=== PATIENT | female | born 1995 | race Caucasian/White ===

== ENCOUNTER 2018-03-26 19:06 | Emergency (ER) | payer MEDICAID, OTHER ==
[2018-03-26 19:12] VITALS: BP 140/67; PULSE 110; RESP 20; TEMP 98.5; O2SAT 98
[2018-03-26] MEDS ORDERED: [UNRECOGNIZED DRUG - CODE] (19:35)
[2018-03-26] MEDS ORDERED: ZOFR4TAB3 SL (19:35)
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
[2018-03-26] MEDS ORDERED: IBUP-232 PO (19:50)
[2018-03-26] MEDS ORDERED: CEPH-460 PO (19:50)
[2018-03-26] MEDS ORDERED: NORC5TAB PO (19:50)
[2018-03-26 20:00] VITALS: BP 168/82; PULSE 82; RESP 16; O2SAT 99
[2018-03-26] MEDS ORDERED: ACETAMINOPHEN/HYDROcodone 325 MG/5 MG TAB PO ONE (20:00)
[2018-03-26] MEDS ORDERED: TETANUS/DIPHTHERIA TOXOID ADULT 0.5 ML VIAL IM ONE (20:00)
[2018-03-26] MEDS ORDERED: LIDOCAINE 2%/EPINEPHrine 1:100,000 20ML MDV NERV BLOCK ONE (20:00)
[2018-03-26 21:00] VITALS: BP 146/74; PULSE 76; RESP 16; O2SAT 97
[2018-03-26 21:10] VITALS: RESP 16
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
[2018-03-26] MEDS ORDERED: IBUPROFEN 600 MG TAB PO ONE (22:15)
[2018-03-26] MEDS ORDERED: CEPHALEXIN MONOHYDRATE 250 MG CAP PO ONE (22:15)
[2018-03-26 22:25] VITALS: BP 152/80
== END 2018-03-26 22:27 | disposition home or self-care (01) ==
LOC: PHED 19:06
DX: S01.512A Laceration without foreign body of oral cavity, initial encounter (principal); S01.511A Laceration without foreign body of lip, initial encounter; Y04.2XXA Assault by strike against or bumped into by another person, initial encounter; Z23 Encounter for immunization
CPT/HCPCS: 40831; 70450; 70486; 73130; 84703; 90471; 90714